=== PATIENT | female | born 1965 | race Caucasian/White ===

== ENCOUNTER 2024-11-26 11:52 | Emergency (ER) | payer MEDICAID ==
[~2024-11-26] VITALS: Ht 152.4 cm; Wt 73.6 kg
[2024-11-26 12:18] VITALS: O2SAT 98
[2024-11-26] MEDS: ACETAZOLAMIDE 500MG ER CAPSULE PO ONE (13:08)
[2024-11-26] MEDS: PILOCARPINE HCL 2% OPHTH DROPS 15ML LEFTEYE SCH (13:08)
[2024-11-26] MEDS: BRIMONIDINE 0.2% OPHTH DROPS 5ML LEFTEYE ONE (13:08)
[2024-11-26] MEDS: DORZOLAMIDE 2% OPHTH 10 ML BOTTLE LEFTEYE SCH (13:08)
[2024-11-26] MEDS: TIMOLOL MALEATE 0.5% OPHTH DROPS 5ML LEFTEYE SCH (13:08)
[2024-11-26 13:10] VITALS: BP 147/78; PULSE 76; RESP 16; TEMP 36.9; O2SAT 98
== END 2024-11-26 13:13 | disposition home or self-care (01) ==
LOC: ER 11:52
DX: H40.212 Acute angle-closure glaucoma, left eye (principal); E78.00 Pure hypercholesterolemia, unspecified; I10 Essential (primary) hypertension
CPT/HCPCS: 99284